=== PATIENT | male | born 1990 | race Two or more races ===

== ENCOUNTER 2021-07-01 17:12 | Emergency (ER) | payer SELFPAY ==
[~2021-07-01] VITALS: Ht 154.9 cm; Wt 136.0 kg
[2021-07-01 18:15] VITALS: BP 140/98
[2021-07-01] MEDS ORDERED: ORPHENADRINE CITRATE 60 MG/2 ML VIAL. IM ONE (18:45)
[2021-07-01] MEDS ORDERED: LIDOCAINE (700MG/PATCH) PATCH. TD ONE (18:45)
[2021-07-01] MEDS ORDERED: KETOROLAC 60 MG/2 ML VIAL. IM ONE (18:45)
[2021-07-01] MEDS ORDERED: ORPH100T PO (19:38)
--- NOTE | 2021-07-01 19:39 | PHYS DOC ---
Past Medical History Additional Past Medical Histor: hernias Past Surgical History: No Surgical History Smoking Status: Current Every Day Smoker Alcohol Use: Occasionally General Adult EDM: Chief Complaint: BACK PAIN OR INJURY HPI: HPI: Patient is a 30 year old male who presents with low back pain that began yesterday morning when he woke up. Patient states that he has intermittent low back pain, but today is more intense. He denies any strenuous activity out of the ordinary for him. 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 Patient has additional complaint of chronic multiple hernias. They are not causing him any discomfort at this time, but he requests referral for physician that can help repair them. Review of Systems: Review of Systems: Constitutional: Denies fever or chills. Respiratory: Denies cough or shortness of breath. Cardiovascular: Denies chest pain or edema. GI: Denies abdominal pain, nausea, vomiting, bloody stools or diarrhea. : See HPI Musculoskeletal: See HPI Integument: Denies rash or other skin lesion. Neurologic: Denies headache, focal weakness or sensory changes. Heart Score: C/O Chest Pain: No Current Medications: Current Medications Medications (Trade) Dose Ordered Sig/[facility] Start Time Stop Time Status Last Admin Dose Admin Ketorolac Tromethamine (Toradol Im) 60 mg 1X ONCE 07/01/21 18:45 07/01/21 18:46 DC 07/01/21 18:49 60 MG Lidocaine (Lidoderm) 1 patch 1X ONCE 07/01/21 18:45 07/01/21 18:46 DC 07/01/21 18:50 1 PATCH Orphenadrine Citrate (Norflex) 60 mg 1X ONCE 07/01/21 18:45 07/01/21 18:46 DC 07/01/21 18:46 60 MG Allergies: Allergies: Allergies Coded Allergies Type Severity Reaction Last Updated Verified No Known Drug Allergies 07/01/21 No Physical Exam: PE: Constitutional: Obese, well groomed, no acute distress, non-toxic appearance. Neck: Normal range of motion, no step-offs, no tenderness. Cardiovascular: Heart rate regular rhythm, no obvious murmur. Lungs & Thorax: Bilateral breath sounds clear to auscultation. Abdomen: Bowel sounds normal, soft, no tenderness, no pulsatile masses, periumbilical hernia appreciated. Skin: Warm, dry, no erythema, no rash. Back: No step-offs, no midline, significant paraspinal spasm and tenderness appreciated on the low thoracic back left side, no CVA tenderness. Extremities: No tenderness, no cyanosis, no clubbing, ROM intact, no edema. Neurologic: Alert and oriented x4, no focal deficits noted, straight leg raise negative bilaterally, steady and symmetric gait. Current Patient Data: Vital Signs: Vital Signs Date Time Temp Pulse Resp B/P (MAP) Pulse Ox O2 Delivery O2 Flow Rate FiO2 07/01/21 18:15 98.7 92 16 140/98 (112) 94 Room Air 98.7 Repeat BP 187/82 Course & Med Decision Making: Course & Med Decision Making Pertinent Labs and Imaging studies reviewed. (See chart for details) Patient is a 30-year-old male with a chief complaint of low back pain that began yesterday morning when he woke up. He denies any specific inciting event, however works an active job. He has additional complaint of multiple hernias, which he requests referral for further evaluation. Patient will be discharged home with prescription for Norflex sent to [facility], per patient request. Additionally, he will be given contact information for general surgery as well as pain management. Patient understands and is agreea ble to discharge plan. Dragon Disclaimer: Dragon Disclaimer: This electronic medical record was generated, in whole or in part, using a voice recognition dictation system. Departure Departure Impression: Primary Impression: Low back strain Qualified Codes: S39.012A - Strain of muscle, fascia and tendon of lower back, initial encounter Additional Impression: Periumbilical hernia Disposition: HOME / SELF CARE / HOMELESS Condition: STABLE Referrals: NO PCP (PCP) DEMIAN TAMEZ MD, THOMAS W MD Patient Instructions: Muscle Strain, [id number] Additional Instructions: You may continue to take ibuprofen up to 800 mg every 6-8 hours as needed for pain. Take the muscle relaxer prescribed every 12 hours as needed. You may also purchase [id number] lidocaine patches (brand-name Salonpas) and use 1 per day for maximum of 12 hours. Please return to the emergency department if you have pain that is uncontrolled at home or develop any new symptoms. Scripts Orphenadrine Citrate (ORPHENADRINE CITRATE) 100 Mg Tablet.er 1 TAB PO PRN Q12HR PRN for MUSCLE PAIN, #20 TAB 1 Refill Prov: CAMILLE CHAU 07/01/21 CAMILLE CHAU Jul 01, 2021 19:39
== END 2021-07-01 20:18 | disposition home or self-care (01) ==
LOC: ER 17:12
DX: S39.012A Strain of muscle, fascia and tendon of lower back, initial encounter (principal); K42.9 Umbilical hernia without obstruction or gangrene; F17.200 Nicotine dependence, unspecified, uncomplicated; X50.9XXA Other and unspecified overexertion or strenuous movements or postures, initial encounter; Y93.89 Activity, other specified; Y92.89 Other specified places as the place of occurrence of the external cause; Y99.8 Other external cause status
CPT/HCPCS: 96372; 99284; J1885; J2360